=== PATIENT | female | born 1955 | race Caucasian/White ===

== ENCOUNTER 2020-01-23 13:08 | Emergency (ER) | payer MEDICARE, OTHER ==
[~2020-01-23 13:08] MED LIST: Etomidate 2 MG/ML 20 ML SDV IVPUSH ONE; Midazolam 5 MG/ML 5 ML MDV ONE; Succinylcholine 200 MG/10 ML MDV ONE; Water For Injection, Sterile 10 ML SDV ONE
[2020-01-23] MEDS ORDERED: Iopamidol 612 MG/ML 50 ML SDV IVPUSH ONE (13:21)
[2020-01-23] MEDS ORDERED: Iopamidol 612 MG/ML 100 ML Bottle IVPUSH ONE (13:21)
[2020-01-23] MEDS ORDERED: Sodium Chloride 0.9% 10 ML Syringe FLUSH PRN (13:21)
--- NOTE | 2020-01-23 13:58 | CR ---
Pelvis: AP view of the pelvis was obtained. Comparison: No previous pelvis study. Mild joint space narrowing is seen within both hips. Vascular calcification is noted. Bony structures are osteopenic. No acute fracture or other abnormality is appreciated. Impression: 1. Mild joint space narrowing, vascular calcification and osteopenia. 2. Nothing acute is appreciated on AP pelvis study. Diagnostic code #2 This report was dictated in MDT
--- NOTE | 2020-01-23 14:02 | CR ---
Chest: Frontal view of the chest was obtained. Comparison: No previous chest x-ray. Vague increased density within the right upper chest is seen which could represent pneumonia as well as pulmonary contusion. Lungs otherwise are clear. Heart size and mediastinum are within normal limits. Endotracheal tube is seen with tip lying at the level of the clavicles. Nasogastric tube is seen lying within the distal esophagus. Bony structures are grossly intact. Impression: 1. Increased density within the right upper chest either due to pneumonia (possible aspiration) or pulmonary contusion. 2. Endotracheal tube which is satisfactory appearance. 3. Tip of nasogastric tube within the lower esophagus. Diagnostic code #3 This report was dictated in MDT
[2020-01-23] MEDS ORDERED: Diphtheria,Pertussis(Acell),Tetanus Vaccine 0.5 ML Syringe ONE (14:26)
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
--- NOTE | 2020-01-23 14:38 | PCM.PRNOTE ---
- Free Text/Narrative Note: Procedure: left subclavian central line placement The left clavicular area was prepped and draped in sterile fashion. Using the clavicle and sternal notch for landmarks, a large bore hollow needle on a syringe was used to access the left subclavian vein at the left mid axillary line. Venous blood was aspirated on the first attempt. The syringe was removed and a guidewire threaded through the needle without resistance. The needle was withdrawn over the wire. A small stab incision was made where the wire passed th rough the skin and the dilator was threaded over the wire through the skin. The triple lumen catheter was then threaded over the wire without resistance. The wire was withdrawn, and luer locks were placed on the three access ports. Blood lily back on all ports and all flushed with saline. The line was secured at the skin with two silk sutures, and a sterile dressing was applied. CT scan confirms proper placement of the line without evidence of complication. Harsh Goetz MD General Surgery
--- NOTE | 2020-01-23 14:42 | CT ---
CT cervical spine Technique: Multiple axial sections through the cervical spine were obtained from above C1 inferiorly to the bottom of T2. Reconstructed coronal and sagittal images were obtained. Comparison: No prior cervical spine imaging is available. Findings: Moderate disc space narrowing at C5-6 with anterior osteophytes and slight posterior osteophytes. Slight osteophytes are noted off the uncovertebral joints at C5-6. Endotracheal tube and nasogastric tube are seen. Degenerative change is noted between the dens and anterior arch of C1. Moderate bilateral neural foraminal stenosis is noted at C5-6. Other neural foramina are fairly well patent. No central canal stenosis is seen. Consolidation is noted within portions of the right upper lung. Mild degenerative change is scattered throughout the apophyseal joints. Impression: 1. Degenerative change as noted above. 2. Consolidation within the right upper chest with differential as described on chest x-ray of pulmonary contusion versus pneumonia and possibly aspiration. 3. No acute bony abnormality is appreciated on CT study of the cervical spine. Diagnostic code #3 This report was dictated in MDT
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
[2020-01-23] MEDS ORDERED: Lactated Ringers 1,000 ML ONE (15:05)
--- NOTE | 2020-01-23 15:23 | CR ---
Left knee: 2 views of the left knee were obtained. Comparison: No previous knee study. Findings: Comminuted distal femur fracture is noted. Displacement is noted of fracture fragments. Bony structures are somewhat osteopenic. Proximal tibia and fibula appear intact. Impression: 1. Comminuted distal femur fracture with displacement. 2. Osteopenia. Diagnostic code #5 This report was dictated in MDT
--- NOTE | 2020-01-23 15:24 | CR ---
Left tibia and fibula: AP and lateral views of the left tibia and fibula were obtained. Distal tibial fracture is noted which shows dislocation at the tibiotalar joint. Distal fibular fracture is also noted. Fracture is also seen within the medial malleolus. Osteopenia is noted. Impression: 1. Distal tibial fracture with dislocation of the tibiotalar joint. 2. Distal fibular fracture is noted as well as medial malleolus fracture. Diagnostic code #5 This report was dictated in MDT
--- NOTE | 2020-01-23 15:25 | CR ---
Left ankle: 2 views of the left ankle were obtained. Dislocated tibiotalar joint is noted. Fracture is noted within the distal tibia as well as additional distal tibial fracture involving the medial malleolus. Distal fibula is also fractured. Osteopenia is noted. No additional abnormality is appreciated. Impression: 1. Fracture and dislocation as noted above. 2. Osteopenia. Diagnostic code #5 This report was dictated in MDT
--- NOTE | 2020-01-23 15:27 | CR ---
Right ankle: 2 views of the right tibia and fibula were obtained. Comparison: No previous study. Findings: Comminuted displaced and angulated fractures are seen within the distal tibia and fibula. Tibiotalar joint appears maintained. Osteopenia seen. No additional abnormality is noted. Impression: 1. Distal tibia and fibular fractures as described above. 2. Osteopenia. Diagnostic code #5 This report was dictated in MDT
--- NOTE | 2020-01-23 15:39 | CR ---
Left wrist: 2 views of the left wrist were obtained. Comminuted distal radial fracture showing displacement and angulation. Distal ulnar fracture is also noted showing displacement. Soft tissue swelling is noted. Bony structures are osteopenic. Impression: 1. Fractures within the distal radius and ulna as noted above. Diagnostic code #5 This report was dictated in MDT
--- NOTE | 2020-01-23 15:45 | CR ---
Right knee: AP and lateral views of the right knee were obtained. Comminuted distal femur fracture is identified. Fracture line may extend into the intercondylar notch of the distal femur. Patellar fracture is also noted. Displacement is seen. Proximal tibia and fibula are intact. Osteopenia is noted. Impression: 1. Comminuted and displaced distal tibial fracture with probable extension into the intercondylar notch. 2. Patellar fracture is noted. Diagnostic code #5 This report was dictated in MDT
--- NOTE | 2020-01-23 15:48 | CR ---
Right tibia and fibula: 2 views of the right tibia and fibula were obtained. Comminuted and angulated fractures are seen within the distal tibia and fibula. Ankle mortise appears intact. On the lateral view there is possible extension of fracture lines into the distal tibia. Distal femur fracture is again noted as well as patellar fracture. Osteopenia is noted. Impression: 1. Comminuted and angulated distal tibia and fibular fractures. 2. Femur fracture as previously described again seen. Diagnostic code #5 This report was dictated in MDT
--- NOTE | 2020-01-23 16:55 | PCM.SN.2 ---
- Free Text/Narrative Note: Trauma Code ER Called to ER for trauma code. Intubation requested per Dr. Mcdowell. Intubation performed per Dr. Mcdowell, medications given for intubation included 5 mg Versed, 16 mg etomidate, 120 mg succinylcholine IV. Successful intubation performed with positive ETCO2 color change and bilateral breath sounds, ETT secured per respiratory care. Assisted ER staff with stabilization. Spontaneous respirations noted on monitor. Additional Versed 5mg and Vecuronium 10 mg IV given for additional sedation and paralysis. SPO2 99%, ventilation via ambu per respiratory care. Report given to recorder. Chinedu Jeffries CRNA
[2020-01-23] MEDS ORDERED: ceFAZolin/Dextrose,Iso-Osmotic 2 GM/50 ML Duplex Bag IV ONE (17:00)
[2020-01-23] MEDS ORDERED: Midazolam 5 MG/ML 10 ML MDV ONE (23:00)
[2020-01-23] MEDS ORDERED: Midazolam 1 MG/ML 5 ML SDV ONE (23:00)
--- NOTE | 2020-01-24 08:52 | CT ---
Head CT Technique: Multiple axial sections through the brain were obtained. Intravenous contrast was not utilized. Comparison: No prior intracranial imaging is available. Findings: Ventricles along with basal cisterns and sulci over the convexities are mildly prominent. No abnormal parenchymal densities are seen. No evidence of intracranial hemorrhage. No midline shift or mass-effect is seen. Bone window settings were reviewed. Visualized mastoid sinuses and paranasal sinuses show nothing acute. Mild carotid artery calcification is seen within the carotid siphon. No acute calvarial finding is seen. Impression: 1. Mild senescent change as noted above. 2. Nothing acute is appreciated on noncontrast head CT exam. Diagnostic code #2 This report was dictated in MDT MTDD
--- NOTE | 2020-01-24 08:58 | CT ---
CT chest Technique: Multiple axial sections were obtained from above the lung apices inferiorly through the lung bases. Intravenous contrast was utilized. Comparison: Prior chest x-ray performed earlier on the same day (1:10 PM). Findings: Aorta shows atherosclerotic calcification. No aneurysm is seen. Coronary artery calcification is seen. Mediastinum shows several lymph nodes believed to be within normal limits. No mediastinal hematoma is seen. Minimal pericardial effusion is seen. Nasogastric tube is noted with tip lying within the stomach. Endotracheal tube is seen with tip lying above the celi. Consolidation is noted within the right upper chest. Lungs otherwise show nothing acute. Mild interstitial change is noted which appears to be due to fibrosis. Slight atelectasis within the right lung base is seen. No pleural effusions are seen. Displaced left clavicle fracture is noted. Fracture is also noted with displacement of the left scapular wing. Slight deformity of the lateral fourth rib is seen probably due to fracture. Nondisplaced fracture is noted with lateral fifth rib as well as anterolateral right sixth rib and lateral right seventh rib. Slight deformity is seen to several other ribs on the left side and right side believed to represent old rib fractures. No pneumothorax is seen. Impression: 1. Consolidation within the right upper lung most likely due to pulmonary contusion/hemorrhage. 2. Fractures within the left clavicle and left scapular wing which show displacement. 3. Essentially nondisplaced acute fractures within the left fourth, fifth, sixth and seventh ribs. Several old rib fractures are noted. 4. Small pericardial effusion. 5. Satisfactory position of endotracheal tube and nasogastric tube. Diagnostic code #5 This report was dictated in [facility] CT abdomen and pelvis Technique: Multiple axial sections were obtained from above the dome of the diaphragm inferiorly through the pubic symphysis. Intravenous contrast was utilized. No oral contrast was utilized. Findings: Fluid is seen around the liver and spleen as well as interposed between bowel loops and within the pelvis. This fluid appears to represent blood. Liver shows nothing acute. Spleen appears intact. Adrenal glands show no nodule. Kidneys show symmetric contrast enhancement without hydronephrosis or mass. Aorta shows atherosclerotic change without aneurysm. Pancreas shows no discrete abnormality. Gallbladder contains no calcified gallstones. No discrete pelvic mass or adenopathy is appreciated. Delayed images were obtained which shows contrast excretion into both ureters as well as contrast being seen within the bladder. On delayed image there is enhancement within the lower right mesentery anterior to the psoas muscle. Given that this is showing enhancement this likely is representing an acute mesenteric bleed from mesenteric tear. Impression: 1. Fluid within the abdomen and pelvis most likely due to blood. 2. No definite solid organ injury is seen. 3. Increasing density within the right lower mesentery anterior to the right psoas muscle on delayed images. This increasing density is suspicious for acute bleed most likely from mesenteric tear. Surgical referral is recommended. 4. No other acute finding is appreciated. Diagnostic code #5 This report was dictated in [facility]
== END 2020-01-23 15:15 ==
LOC: JD.ED 13:08 → MERGE 13:08 → JD.ED 15:15
DX: S82.52XA Displaced fracture of medial malleolus of left tibia, initial encounter for closed fracture (principal); S82.001A Unspecified fracture of right patella, initial encounter for closed fracture; S52.502A Unspecified fracture of the lower end of left radius, initial encounter for closed fracture; S52.602A Unspecified fracture of lower end of left ulna, initial encounter for closed fracture; S82.831A Other fracture of upper and lower end of right fibula, initial encounter for closed fracture; S82.832A Other fracture of upper and lower end of left fibula, initial encounter for closed fracture; S72.402A Unspecified fracture of lower end of left femur, initial encounter for closed fracture; S42.002A Fracture of unspecified part of left clavicle, initial encounter for closed fracture; S22.42XA Multiple fractures of ribs, left side, initial encounter for closed fracture; S27.321A Contusion of lung, unilateral, initial encounter; F17.210 Nicotine dependence, cigarettes, uncomplicated; Z20.828 Contact with and (suspected) exposure to other viral communicable diseases; Z23 Encounter for immunization; W22.8XXA Striking against or struck by other objects, initial encounter
CPT/HCPCS: 31500; 36415; 36430; 36556; 43752; 70450; 71045; 71260; 72125; 72170; 73100; 73560; 73590; 73600; 74177; 80053; 81025; 83605; 85025; 85610; 85730; 86850; 86900; 86901; 86922; 90471; 90715; 99285; J0330; J0690; J2250; J3490; J7120; P9016; P9017; Q9967; U0002